=== PATIENT | female | born 1955 | race Caucasian/White ===

== ENCOUNTER 2023-01-01 11:15 | Emergency (ER) | payer MEDICARE | END 2023-01-01 12:28 | disposition home or self-care (01) | LOC: JP.ED 11:15 | DX: M46.1 Sacroiliitis, not elsewhere classified (principal); J45.909 Unspecified asthma, uncomplicated; E78.00 Pure hypercholesterolemia, unspecified; Z88.2 Allergy status to sulfonamides; Z88.5 Allergy status to narcotic agent; Z79.899 Other long term (current) drug therapy; Z87.891 Personal history of nicotine dependence | CPT/HCPCS: 99283 ==

== ENCOUNTER 2023-05-14 08:14 | Day surgery (SDC) | payer MEDICARE ==
[2023-05-14] MEDS ORDERED: Lactated Ringers 1,000 ML IV SCH (09:00)
[2023-05-14] MEDS ORDERED: fentaNYL 50 MCG/ML SDV ONE (09:35)
[2023-05-14] MEDS ORDERED: Midazolam 1 MG/ML 2 ML SDV ONE (09:35)
[2023-05-14] MEDS ORDERED: Propofol 200 MG/20 ML SDV ONE ×2 (09:35→09:59)
== END 2023-05-14 11:21 | disposition home or self-care (01) ==
LOC: JP.SDS 08:14
PROVIDERS: ATTEND Student in an Organized Health Care Education/Training Program
DX: Z12.11 Encounter for screening for malignant neoplasm of colon (principal); K63.5 Polyp of colon; K62.1 Rectal polyp; K57.30 Diverticulosis of large intestine without perforation or abscess without bleeding; I10 Essential (primary) hypertension; J45.909 Unspecified asthma, uncomplicated; Z79.899 Other long term (current) drug therapy; Z98.890 Other specified postprocedural states; Z79.01 Long term (current) use of anticoagulants; Z88.2 Allergy status to sulfonamides; Z88.5 Allergy status to narcotic agent
CPT/HCPCS: 45380; 88305; J2250; J2704; J3010; J7120